=== PATIENT | female | born 1995 | race American Indian/Alaskan Native ===

== ENCOUNTER 2018-09-10 02:29 | Emergency (ER) | payer SELFPAY ==
[2018-09-10 02:37] VITALS: BP 116/75
[2018-09-10] MEDS ORDERED: BOOSTRIX IM ONE (03:01)
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
== END 2018-09-10 03:00 | disposition left against medical advice (07) ==
LOC: ED 02:29
DX: M79.645 Pain in left finger(s) (principal); Z53.21 Procedure and treatment not carried out due to patient leaving prior to being seen by health care provider

== ENCOUNTER 2018-09-15 15:51 | Emergency (ER) | payer SELFPAY ==
[2018-09-15 16:12] VITALS: BP 121/89
--- NOTE | 2018-09-15 16:14 | Emergency Department Report ---
Blank Doc - Documentation Documentation: 22 y o female presents to ed cc of generalized aching x yesterday cc of right ear pain, she also cc of heavier than normal vaginal bleed ua,upt, ACC eval
[2018-09-15 17:14] LABS: Bilirubin,Urine NEG (Negative); Blood,Urine SM (Negative); Color,Urine Yellow (Yellow); Mucus,Urine 2+ /HPF; Protein,Urine <15 mg/dL mg/dL (Negative); Urobilinogen,Urine < 2.0 mg/dL (<2.0)
[2018-09-15 17:15] LABS: HCG Qualitative,Urine Negative (Negative)
[2018-09-15] MEDS ORDERED: NACL 0.9% 1000 ML 1,000 ML IV ONE ×2 (18:37)
[2018-09-15] MEDS ORDERED: ZOFRAN IV ONE ×2 (18:37)
[2018-09-15 19:44] LABS: Hemoglobin 12.4 gm/dl (10.1-14.3); Mean Corpuscular HGB Conc 34 % (30-34); Mean Corpuscular Volume 92 fl (79-97); Platelet Count 261 K/mm3 (140-440); Red Blood Count 4.01 M/mm3 (3.65-5.03); Red Cell Distribution Width 13.6 % (13.2-15.2)
--- NOTE | 2018-09-15 19:45 | Emergency Department Report ---
HPI - General Chief Complaint: Pain General Time Seen by Provider: 09/15/18 16:12 - HPI HPI: PT is a 22-year-old female who comes to the ER with generalized malaise for several days. She also complains of finger pain after she smashed her finger between some objects a few days ago. Patient states that she's had a fever but did not take her temperature at home. She denies any abdominal pain, denies any nausea vomiting diarrhea. Patient denies cough cold or congestion. Patient not concerned that she is she states that she just had her period 2 weeks ago. ED Past Medical Hx - Past Medical History Previous Medical History?: No - Surgical History Past Surgical History?: No - Social History Smoking Status: Current Every Day Smoker ED Review of Systems ROS: Stated complaint: NAUSEA/COUGHING/WEAK Other details as noted in HPI Comment: All other systems reviewed and negative Physical Exam - Physical Exam Vital Signs: Vital Signs 09/15/18 16:11 Temperature 97.9 F Pulse Rate 72 Respiratory 18 Rate Blood Pressure 121/89 O2 Sat by Pulse 100 Oximetry Physical Exam: WDWN patient in NAD VS per RN flow sheet Alert and oriented to person, place and time. S1-S2. No S3 or S4. No systolic or diastolic murmur. No JVD. No pitting edema. Lungs clear to auscultation bilaterally anteriorly and posteriorly. Abdomen soft nontender bowel sounds X4 Moves all extremities well. Mood and affect appropriate. ED Course Vital Signs 09/15/18 16:11 Temperature 97.9 F Pulse Rate 72 Respiratory 18 Rate Blood Pressure 121/89 O2 Sat by Pulse 100 Oximetry - Reevaluation(s) Reevaluation #1: 09/16/18 02:11 SEE DOWN TIME DOCUMENTATION ED Medical Decision Making - Lab Data Result diagrams: 09/15/18 19:21 - Radiology Data Radiology results: report reviewed, image reviewed - Medical Decision Making Labs 09/15/18 09/15/18 16:44 19:21 WBC 7.3 RBC 4.01 Hgb 12.4 Hct 37.0 MCV 92 MCH 31 MCHC 34 RDW 13.6 Plt Count 261 Urine Color Yellow Urine Turbidity Slightly-cloudy Urine pH 5.0 Ur Specific [place] 1.019 Urine Protein <15 mg/dl Urine Glucose (UA) Neg Urine Ketones 80 Urine Blood Sm Urine Nitrite Neg Urine Bilirubin Neg Urine Urobilinogen < 2.0 Ur Leukocyte Esterase Neg Urine WBC (Auto) 1.0 Urine RBC (Auto) 1.0 U Epithel Cells (Auto) 1.0 Urine Mucus 2+ Urine HCG, Qual Negative Vital Signs 09/15/18 16:11 Temperature 97.9 F Pulse Rate 72 Respiratory 18 Rate Blood Pressure 121/89 O2 Sat by Pulse 100 Oximetry Critical care attestation.: If time is entered above; I have spent that time in minutes in the direct care of this critically ill patient, excluding procedure time. ED Disposition Clinical Impression: Dehydration, Finger contusion Disposition: DC-01 TO HOME OR SELFCARE Is pt being admited?: No Does the pt Need Aspirin: No Condition: Stable Referrals: PARTH SHAH MD [Primary Care Provider] - 3-5 Days Time of Disposition: 02:10
--- NOTE | 2018-09-15 21:49 | XRay Report ---
PROCEDURE: XR FINGER(S) 2+V LT HISTORY: pain FINDINGS: PA view of the left hand was acquired as well as lateral and oblique views of the left thum b. These images demonstrate no fracture or malalignment of the left thumb. IMPRESSION: No fracture is seen in the left hand or thumb This document is electronically signed by Oz Jimenez MD., September 15 2018 08:22:36 PM ET
[2018-09-16 04:22] LABS: Albumin 3.8 g/dL (3.9-5); BUN/Creatinine Ratio 13; Blood Urea Nitrogen 9 mg/dL (7-17); Calcium 8.6 mg/dL (8.4-10.2); Hemolysis Index 1
[2018-09-16 04:57] LABS: Alanine Aminotransferase < 5 units/L (7-56)
== END 2018-09-15 22:15 | disposition home or self-care (01) ==
LOC: ED 15:51
DX: S60.222A Contusion of left hand, initial encounter (principal); E86.0 Dehydration; F17.200 Nicotine dependence, unspecified, uncomplicated; W23.1XXA Caught, crushed, jammed, or pinched between stationary objects, initial encounter; Y93.89 Activity, other specified; Y92.89 Other specified places as the place of occurrence of the external cause; Y99.8 Other external cause status
CPT/HCPCS: 36415; 73140; 80053; 81001; 81025; 83690; 85027; 96361; 96374; 99284; J2405; J7030

== ENCOUNTER 2019-03-27 15:16 | Emergency (ER) | payer SELFPAY ==
--- NOTE | 2019-03-27 16:47 | Event Note ---
ED Screening Note Date of service: 03/27/19 Time: 16:45 ED Screening Note: 23 y o f presents to Ed cc of no apetite with nausea and dizziness x 2 days denies all other symptoms This initial assessment/diagnostic orders/clinical plan/treatment(s) is/are subject to change based on patients health status, clinical progression and re- assessment by fellow clinical providers in the ED. Further treatment and workup at subsequent clinical providers discretion. Patient/guardian urged not to elope from the ED as their condition may be serious if not clinically assessed and managed. Initial orders include: ua,upt
[2019-03-27 17:13] LABS: Bilirubin,Urine NEG (Negative); Blood,Urine NEG (Negative); Color,Urine Yellow (Yellow); Mucus,Urine FEW /HPF; Protein,Urine <15 mg/dL mg/dL (Negative); Urobilinogen,Urine < 2.0 mg/dL (<2.0)
[2019-03-27 17:19] LABS: HCG Qualitative,Urine Positive (Negative)
[2019-03-27] MEDS ORDERED: ONDANSETRON 4 MG ODT TAB PO ONE (19:00)
--- NOTE | 2019-03-27 20:22 | Ultrasound Report ---
Obstetrical ultrasound. 03/27/2019. HISTORY: Nausea and vomiting. FINDINGS: Imaging was performed by transabdominally and endovaginally. The uterus measures 8.2 x 4.2 x 4.4 cm. An intrauterine is dated 6 weeks 1 day. heart tones are 118 bpm. No implantation bleed is identified. Right ovary measures 3 x 2.7 x 2.2 cm. Left ovary measures 2 x 1.8 x 1.9 cm. IMPRESSION: Early viable intrauterine dated 6 weeks 1 day. Signer Name: Zachary Avila MD Signed: 03/27/2019 8:17 PM Workstation Name: [id number] [email or web address] [id number]
--- NOTE | 2019-03-27 20:54 | Emergency Department Report ---
ED Abdominal Pain HPI - General Chief Complaint: Nausea/Vomiting/Diarrhea Stated Complaint: DIZZY,NAUSEA Time Seen by Provider: 03/27/19 18:57 Source: patient Mode of arrival: Ambulatory Limitations: No Limitations - History of Present Illness Initial Comments: This is a 23-year-old Irish female who presents for intermittent nausea abdominal aching. Patient denies denies vomiting, no vaginal discharge no vaginal bleeding. States last cycle 2 months ago. States she's not sure she's . Patient is Kole Loo MD Complaint: abdominal pain Onset/Timin -: week(s) Location: suprapubic Radiation: suprapubic Migration to: no migration Severity: moderate Severity scale (0 -10): 3 Quality: aching Consistency: constant Improves With: nothing Worsens With: nothing Associated Symptoms: nausea. denies: vomiting, diarrhea, fever, chills, constipation, dysuria, melena - Related Data Previous Rx's Medication Instructions Recorded Last Taken Type Acetaminophen [Mapap] 650 mg PO QID PRN #30 tablet 03/27/19 Unknown Rx Ondansetron [Zofran Odt] 4 mg PO Q8HR PRN #20 tab.rapdis 03/27/19 Unknown Rx Allergies Allergy/AdvReac Type Severity Reaction Status Date / Time No Known Allergies Allergy Verified 09/15/18 15:55 ED Review of Systems ROS: Stated complaint: DIZZY,NAUSEA Other details as noted in HPI Constitutional: denies: chills, fever Eyes: denies: eye pain, eye discharge, vision change ENT: denies: ear pain, throat pain Respiratory: denies: cough, shortness of breath, wheezing Cardiovascular: denies: chest pain, palpitations Endocrine: no symptoms reported Gastrointestinal: abdominal pain, nausea. denies: vomiting, diarrhea Genitourinary: denies: urgency, dysuria, discharge Musculoskeletal: denies: back pain, joint swelling, arthralgia Skin: denies: rash, lesions Neurological: denies: headache, weakness, paresthesias Psychiatric: denies: anxiety, depression Hematological/Lymphatic: denies: easy bleeding, easy bruising ED Past Medical Hx - Past Medical History Previous Medical History?: No - Surgical History Past Surgical History?: No - Social History Smoking Status: Current Every Day Smoker Substance Use Type: Alcohol, Marijuana - Medications Home Medications: Home Medications Medication Instructions Recorded Confirmed Last Taken Type Acetaminophen [Mapap] 650 mg PO QID PRN #30 tablet 03/27/19 Unknown Rx Ondansetron [Zofran Odt] 4 mg PO Q8HR PRN #20 tab.rapdis 03/27/19 Unknown Rx ED Physical Exam - General Limitations: No Limitations General appearance: alert, in no apparent distress - Head Head exam: Present: atraumatic, normocephalic - Eye Eye exam: Present: normal appearance, PERRL, EOMI - ENT ENT exam: Present: mucous membranes moist - Neck Neck exam: Present: normal inspection. Absent: tenderness - Respiratory Respiratory exam: Present: normal lung sounds bilaterally. Absent: respiratory distress, wheezes, rales, stridor, chest wall tenderness - Cardiovascular Cardiovascular Exam: Present: regular rate, normal rhythm, normal heart sounds. Absent: systolic murmur, diastolic murmur, rubs, gallop - GI/Abdominal GI/Abdominal exam: Present: soft, normal bowel sounds. Absent: distended, tenderness, guarding, rebound, rigid, bruit, hernia - External exam: Present: other (deferred by patient ) - Extremities Exam Extremities exam: Present: normal inspection, full ROM, normal capillary refill - Back Exam Back exam: Present: normal inspection, full ROM. Absent: tenderness, CVA tenderness (R), CVA tenderness (L), muscle spasm, rash noted - Neurological Exam Neurological exam: Present: alert, oriented X3, CN II-XII intact, normal gait - Psychiatric Psychiatric exam: Present: normal affect, normal mood - Skin Skin exam: Present: warm, dry, intact, normal color. Absent: rash ED Course Vital Signs 03/27/19 15:26 Temperature 97.8 F Pulse Rate 85 Respiratory 18 Rate Blood Pressure 136/86 O2 Sat by Pulse 100 Oximetry ED Medical Decision Making - Lab Data Labs 03/27/19 03/27/19 17:00 Unknown Urine Color Yellow Urine Turbidity Clear Urine pH 5.0 Ur Specific [place] 1.014 Urine Protein <15 mg/dl Urine Glucose (UA) Neg Urine Ketones Tr Urine Blood Neg Urine Nitrite Neg Urine Bilirubin Neg Urine Urobilinogen < 2.0 Ur Leukocyte Esterase Neg Urine WBC (Auto) 1.0 Urine RBC (Auto) 4.0 U Epithel Cells (Auto) 1.0 Urine Mucus Few Urine HCG, Qual Positive A Blood Type O POSITIVE - Radiology Data Radiology results: report reviewed, image reviewed single IUP 6 weeks 1 days FHR: 118 bpm - Medical Decision Making single IUP 6 weeks 1 days FHR: 118 bpm, plan follow up with ob in 2-3 days . pt verbalized agreement and understanding of discharge plan. There is no vaginal bleeding , no vaginal discharge abd pain is resolved. Critical care attestation.: If time is entered above; I have spent that time in minutes in the direct care of this critically ill patient, excluding procedure time. ED Disposition Clinical Impression: Qualifiers: Weeks of gestation: less than 8 weeks Qualified Code(s): Z3A.01 - Less than 8 weeks gestation of Disposition: TO HOME OR SELFCARE Is pt being admited?: No Does the pt Need Aspirin: No Condition: Stable Instructions: (ED) Prescriptions: Acetaminophen [Mapap] 650 mg PO QID PRN #30 tablet PRN Reason: Pain , Severe (7-10) Ondansetron [Zofran Odt] 4 mg PO Q8HR PRN #20 tab.rapdis PRN Reason: Nausea Referrals: KIM JOHNSON MD [Staff Physician] - 3-5 Days Forms: Work/School Release Form(ED) Time of Disposition: 20:59
[2019-03-27 22:14] VITALS: BP 125/74
== END 2019-03-27 21:23 | disposition home or self-care (01) ==
LOC: ED 15:16
DX: O26.891 Other specified pregnancy related conditions, first trimester (principal); R10.30 Lower abdominal pain, unspecified; O99.331 Smoking (tobacco) complicating pregnancy, first trimester; O99.321 Drug use complicating pregnancy, first trimester; F12.90 Cannabis use, unspecified, uncomplicated; Z3A.01 Less than 8 weeks gestation of pregnancy
CPT/HCPCS: 36415; 76801; 76817; 81001; 81025; 84702; 86900; 86901; Q0162

== ENCOUNTER 2019-04-14 00:16 | Emergency (ER) | payer SELFPAY | END 2019-04-14 02:37 | disposition left against medical advice (07) | LOC: ED 00:16 | DX: R11.0 Nausea (principal); R53.1 Weakness; Z53.21 Procedure and treatment not carried out due to patient leaving prior to being seen by health care provider ==

== ENCOUNTER 2019-05-12 21:24 | Emergency (ER) | payer MEDICAID ==
[2019-05-12 21:34] VITALS: BP 101/49
[2019-05-12] MEDS ORDERED: SODIUM CHLORIDE 0.9% 1000 ML 1,000 ML IV ONE (22:06)
[2019-05-12] MEDS ORDERED: diphenhydrAMINE 50 MG/ML VIAL IV ONE (22:06)
[2019-05-12] MEDS ORDERED: METOCLOPRAMIDE 10 MG/2 ML INJ IV ONE (22:06)
[2019-05-12] MEDS ORDERED: ACETAMINOPHEN 500 MG TAB PO ONE (22:06)
--- NOTE | 2019-05-12 22:13 | Event Note ---
ED Screening Note Date of service: 05/12/19 Time: 22:09 ED Screening Note: Patient is A0 23 yo AA female who is approximately 12 weeks gestation who c/o diffuse lower abdominal pain, nausea, vomiting, chills, subjective fever, nasal and sinus congestion, dry cough, frontal headache, diffuse body aches and pains for the last 2 days. Patient denies dizziness, chest pain, dyspnea, vaginal bleeding bleeding or sore throat. This initial assessment/diagnostic orders/clinical plan/treatment(s) is/are subject to change based on patients health status, clinical progression and re- assessment by fellow clinical providers in the ED. Further treatment and workup at subsequent clinical providers discretion. Patient/guardian urged not to elope from the ED as their condition may be serious if not clinically assessed and managed. Initial orders include: cbc, hcg quant, cmp, ua, transvaginal US, Influenza, tylenol, reglan and benadryl
[2019-05-12 23:10] LABS: Basophils % (Auto) 0.4 % (0.0-1.8); Eosinophils # (Auto) 0.2 K/mm3 (0.0-0.4); Eosinophils % (Auto) 1.5 % (0.0-4.3); Hematocrit 34.7 % (30.3-42.9); Hemoglobin 12.1 gm/dl (10.1-14.3); Mean Corpuscular HGB Conc 35 % (30-34); Mean Corpuscular Volume 94 fl (79-97); Monocytes # (Auto) 0.3 K/mm3 (0.0-0.8); Monocytes % (Auto) 2.9 % (0.0-7.3); Platelet Count 237 K/mm3 (140-440); Red Blood Count 3.69 M/mm3 (3.65-5.03); Red Cell Distribution Width 14.2 % (13.2-15.2)
[2019-05-12 23:27] LABS: Bacteria,Urine 1+ /HPF (Negative); Bilirubin,Urine NEG (Negative); Blood,Urine NEG (Negative); Color,Urine Yellow (Yellow); Mucus,Urine FEW /HPF; Protein,Urine <15 mg/dL mg/dL (Negative); Urobilinogen,Urine < 2.0 mg/dL (<2.0); WBC,Urine < 1.0 /HPF (0.0-6.0)
[2019-05-12 23:35] LABS: Alanine Aminotransferase 7 units/L (7-56); BUN/Creatinine Ratio 4; Blood Urea Nitrogen 2 mg/dL (7-17); Calcium 9.3 mg/dL (8.4-10.2); Hemolysis Index 4
--- NOTE | 2019-05-13 00:56 | Ultrasound Report ---
OB Ultrasound HISTORY: pelvic pain - . TECHNIQUE: Grayscale and color imaging performed. COMPARISON: OB ultrasound from 03/27/2019 FINDINGS: Uterus measures 11.6 x 6.4 x 6.0 cm with endometrial echo complex with measuring 5.3 cm. Th ere is a single viable intrauterine gestation with crown-rump length of 6.6 cm which corresponds with an age of 12 weeks and 6 days. Estimated delivery date is 11/19/2019. Heart rate is 162 bpm. No free fluid or acute abnormality. Ovaries are both normal in appearance. IMPRESSION: Single viable intrauterine gestation as above. Signer Name: Efe Whitaker MD Signed: 05/13/2019 12:52 AM Workstation Name: [id number]
[2019-05-13] MEDS ORDERED: diphenhydrAMINE 50 MG/ML VIAL ONE (01:30)
[2019-05-13] MEDS ORDERED: METOCLOPRAMIDE 10 MG/2 ML INJ ONE (01:30)
[2019-05-13] MEDS ORDERED: SODIUM CHLORIDE 0.9% 1000 ML 1,000 ML ONE (01:31)
[2019-05-13] MEDS ORDERED: ACETAMINOPHEN 500 MG TAB ONE (01:31)
--- NOTE | 2019-05-13 02:27 | Emergency Department Report ---
ED Abdominal Pain HPI - General Chief Complaint: Abdominal Pain Stated Complaint: SLAUGHTER,BODY ACHE, STOMACH ACHE,SWEATS Time Seen by Provider: 05/13/19 01:11 Source: patient Mode of arrival: Ambulatory Limitations: No Limitations - History of Present Illness Initial Comments: Patient is A0 23 yo AA female who is approximately 12 weeks gestation who c/o diffuse lower abdominal pain, nausea, vomiting, chills, subjective fever, nasal and sinus congestion, dry cough, frontal headache, diffuse body aches and pains for the last 2 days. Patient denies dizziness, chest pain, dyspnea, vaginal bleeding bleeding or sore throat. symptoms are rated as 3/10, are exacerbated by activity, are relieved by rest. There is no vaginal bleeding at this time. MD Complaint: abdominal pain Onset/Timin -: days(s) Location: LLQ, RLQ Radiation: LLQ, RLQ Migration to: no migration Severity: moderate Severity scale (0 -10): 5 Quality: cramping Consistency: intermittent Improves With: nothing Worsens With: nothing Context: sick contacts Associated Symptoms: nausea, vomiting. denies: diarrhea, fever, chills, con stipation, dysuria, melena - Related Data LMP (females 10-50): 3 months Previous Rx's Medication Instructions Recorded Last Taken Type Acetaminophen [Mapap] 650 mg PO QID PRN #30 tablet 03/27/19 Unknown Rx Ondansetron [Zofran Odt] 4 mg PO Q8HR PRN #20 tab.rapdis 03/27/19 Unknown Rx Metoclopramide [Reglan] 10 mg PO ACHS PRN #30 tablet 05/13/19 Unknown Rx diphenhydrAMINE [Benadryl CAP] 25 mg PO Q8HR PRN #30 capsule 05/13/19 Unknown Rx Allergies Allergy/AdvReac Type Severity Reaction Status Date / Time No Known Allergies Allergy Verified 09/15/18 15:55 ED Review of Systems ROS: Stated complaint: SLAUGHTER,BODY ACHE, STOMACH ACHE,SWEATS Other details as noted in HPI Constitutional: denies: chills, fever Eyes: denies: eye pain, eye discharge, vision change ENT: denies: ear pain, throat pain Respiratory: denies: cough, shortness of breath, wheezing Cardiovascular: denies: chest pain, palpitations Endocrine: no symptoms reported Gastrointestinal: abdominal pain, nausea, vomiting. denies: diarrhea, constipation, melena Genitourinary: denies: urgency, dysuria, frequency, hematuria, discharge Musculoskeletal: denies: back pain, joint swelling, arthralgia Skin: denies: rash, lesions Neurological: denies: headache, weakness, paresthesias Psychiatric: denies: anxiety, depression Hematological/Lymphatic: denies: easy bleeding, easy bruising ED Past Medical Hx - Past Medical History Previous Medical History?: No - Surgical History Past Surgical History?: No - Social History Smoking Status: Current Every Day Smoker Substance Use Type: None - Medications Home Medications: Home Medications Medication Instructions Recorded Confirmed Last Taken Type Acetaminophen [Mapap] 650 mg PO QID PRN #30 tablet 03/27/19 Unknown Rx Ondansetron [Zofran Odt] 4 mg PO Q8HR PRN #20 tab.rapdis 03/27/19 Unknown Rx Metoclopramide [Reglan] 10 mg PO ACHS PRN #30 tablet 05/13/19 Unknown Rx diphenhydrAMINE [Benadryl CAP] 25 mg PO Q8HR PRN #30 capsule 05/13/19 Unknown Rx ED Physical Exam - General Limitations: No Limitations General appearance: alert, in no apparent distress - Head Head exam: Present: atraumatic, normocephalic - Eye Eye exam: Present: normal appearance, PERRL, EOMI Pupils: Present: normal accommodation - ENT ENT exam: Present: mucous membranes moist - Neck Neck exam: Present: normal inspection, full ROM. Absent: tenderness - Respiratory Respiratory exam: Present: normal lung sounds bilaterally. Absent: respiratory distress, wheezes, stridor - Cardiovascular Cardiovascular Exam: Present: regular rate, normal rhythm, normal heart sounds. Absent: systolic murmur, diastolic murmur, rubs, gallop - GI/Abdominal GI/Abdominal exam: Present: soft, normal bowel sounds. Absent: distended, tenderness, guarding, rebound, rigid, bruit, hernia - Rectal Rectal exam: Present: deferred - Extremities Exam Extremities exam: Present: normal inspection, full ROM. Absent: tenderness - Back Exam Back exam: Present: normal inspection, full ROM. Absent: tenderness, CVA tender ness (R), CVA tenderness (L) - Neurological Exam Neurological exam: Present: alert, oriented X3, CN II-XII intact, normal gait - Psychiatric Psychiatric exam: Present: normal affect, normal mood - Skin Skin exam: Present: warm, dry, intact, normal color. Absent: rash ED Course Vital Signs 05/12/19 21:33 Temperature 97.7 F Pulse Rate 91 H Respiratory 18 Rate Blood Pressure 101/49 O2 Sat by Pulse 98 Oximetry ED Medical Decision Making - Lab Data Result diagrams: 05/12/19 22:31 05/12/19 22:31 Labs 05/12/19 05/12/19 05/12/19 22:10 22:31 22:31 WBC 10.7 RBC 3.69 Hgb 12.1 Hct 34.7 MCV 94 MCH 33 H MCHC 35 H RDW 14.2 Plt Count 237 Lymph % (Auto) 9.0 L [place] % (Auto) 2.9 Eos % (Auto) 1.5 Baso % (Auto) 0.4 Lymph # 1.0 L [place] # 0.3 Eos # 0.2 Baso # 0.0 Seg Neutrophils % 86.2 H Seg Neutrophils # 9.2 H Sodium 138 Potassium 3.5 L Chloride 101.5 Carbon Dioxide 23 Anion Gap 17 BUN 2 L Creatinine 0.5 L Estimated GFR > 60 BUN/Creatinine Ratio 4 Glucose 92 Calcium 9.3 Total Bilirubin 0.20 AST 17 ALT 7 Alkaline Phosphatase 54 Total Protein 7.2 Albumin 4.0 Albumin/Globulin Ratio 1.3 Lipase 10 L HCG, Qual Urine Color Urine Turbidity Urine pH Ur Specific [place] Urine Protein Urine Glucose (UA) Urine Ketones Urine Blood Urine Nitrite Urine Bilirubin Urine Urobilinogen Ur Leukocyte Esterase Urine WBC (Auto) Urine RBC (Auto) U Epithel Cells (Auto) Urine Bacteria (Auto) Urine Mucus Influenza A (Rapid) Negative Influenza B (Rapid) Negative 05/12/19 05/12/19 22:31 22:50 WBC RBC Hgb Hct MCV MCH MCHC RDW Plt Count Lymph % (Auto) [place] % (Auto) Eos % (Auto) Baso % (Auto) Lymph # [place] # Eos # Baso # Seg Neutrophils % Seg Neutrophils # Sodium Potassium Chloride Carbon Dioxide Anion Gap BUN Creatinine Estimated GFR BUN/Creatinine Ratio Glucose Calcium Total Bilirubin AST ALT Alkaline Phosphatase Total Protein Albumin Albumin/Globulin Ratio Lipase HCG, Qual Positive Urine Color Yellow Urine Turbidity Clear Urine pH 8.0 H Ur Specific [place] 1.013 Urine Protein <15 mg/dl Urine Glucose (UA) Neg Urine Ketones Neg Urine Blood Neg Urine Nitrite Neg Urine Bilirubin Neg Urine Urobilinogen < 2.0 Ur Leukocyte Esterase Neg Urine WBC (Auto) < 1.0 Urine RBC (Auto) 2.0 U Epithel Cells (Auto) 4.0 Urine Bacteria (Auto) 1+ Urine Mucus Few Influenza A (Rapid) Influenza B (Rapid) - Radiology Data Radiology results: report reviewed, image reviewed Findings [facility] [address] [place] [address] Ultrasound Report Signed Patient: RUSS MORGAN MR#: [id number] : 1995 Acct:[id number] Age/Sex: 23 / F ADM Date: 05/12/19 Loc: ED Attending Dr: Ordering Physician: RACHAEL GIVENS Date of Service: 05/12/19 Procedure(s): US OB <= 14 weeks fetus Accession Number(s): [id number] cc: RACHAEL GIVENS OB Ultrasound HISTORY: pelvic pain - . TECHNIQUE: Grayscale and color imaging performed. COMPARISON: OB ultrasound from 03/27/2019 FINDINGS: Uterus measures 11.6 x 6.4 x 6.0 cm with endometrial echo complex with measuring 5.3 cm. There is a single viable intrauterine gestation with crown-rump length of 6.6 cm which corresponds with an age of 12 weeks and 6 days. Estimated delivery date is 11/19/2019. Heart rate is 162 bpm. No free fluid or acute abnormality. Ovaries are both normal in appearance. IMPRESSION: Single viable intrauterine gestation as above. Signer Name: Efe Whitaker MD Signed: 05/13/2019 12:52 AM Workstation Name: [id number] Transcribed By: GONSALO Dictated By: Efe Whitaker MD Electronically Authenticated By: Efe Whitaker MD Signed Date/Time: 05/13/1951 DD/ TD/TT: - Medical Decision Making US: Single IUP 12 weeks and 6 days, FHR: 162 bmp: ua: normal, there is no vaginal bleeding. Symptoms are improved with medications given in ed. Plan: dc to home with rx: Diclegis , follow up with OBGYN in 2-3 days, return to emergency if symptoms worsen. pt verbalized agreement and understanding of discharge plan. Critical care attestation.: If time is entered above; I have spent that time in minutes in the direct care of this critically ill patient, excluding procedure time. ED Disposition Clinical Impression: Nausea and vomiting Qualifiers: Vomiting type: unspecified Vomiting Intractability: non-intractable Qualified Code(s): R11.2 - Nausea with vomiting, unspecified Abdominal pain during Qualifiers: Trimester: second trimester Qualified Code(s): O26.892 - Other specified related conditions, second trimester; R10.9 - Unspecified abdominal pain Disposition: TO HOME OR SELFCARE Is pt being admited?: No Does the pt Need Aspirin: No Condition: Stable Instructions: Abdominal Pain (ED), Acute Nausea and Vomiting (ED) Prescriptions: diphenhydrAMINE [Benadryl CAP] 25 mg PO Q8HR PRN #30 capsule PRN Reason: Nausea And Vomiting Metoclopramide [Reglan] 10 mg PO ACHS PRN #30 tablet PRN Reason: Nausea And Vomiting Referrals: ADRIAN BYNUM MD [Staff Physician] - 3-5 Days Forms: Work/School Release Form(ED) Time of Disposition: 02:41
== END 2019-05-13 02:55 | disposition home or self-care (01) ==
LOC: ED 21:24
DX: O26.891 Other specified pregnancy related conditions, first trimester (principal); R11.0 Nausea; O21.8 Other vomiting complicating pregnancy; O99.331 Smoking (tobacco) complicating pregnancy, first trimester; Z3A.12 12 weeks gestation of pregnancy
CPT/HCPCS: 36415; 76801; 80053; 81001; 83690; 84703; 85025; 87400; 96361; 96374; 96375; 99284; J1200; J2765; J7030

== ENCOUNTER 2019-11-23 16:55 | Emergency (ER) | payer MEDICAID ==
--- NOTE | 2019-11-23 19:11 | Event Note ---
ED Screening Note Date of service: 11/23/19 Time: 19:10 ED Screening Note: Patient complains of left upper abdominal pain radiating to her left flank times today Denies any urinary symptoms Denies history of abdominal surgeries States vomited x2 without hematemesis/coffee-ground emesis This initial assessment/diagnostic orders/clinical plan/treatment(s) is/are subject to change based on patients health status, clinical progression and re- assessment by fellow clinical providers in the ED. Further treatment and workup at subsequent clinical providers discretion. Patient/guardian urged not to elope from the ED as their condition may be serious if not clinically assessed and managed. Initial orders include: Labs
[2019-11-23 19:34] LABS: Basophils # (Auto) 0.1 K/mm3 (0.0-0.1); Basophils % (Auto) 0.8 % (0.0-1.8); Eosinophils # (Auto) 0.1 K/mm3 (0.0-0.4); Eosinophils % (Auto) 0.9 % (0.0-4.3); Hematocrit 39.8 % (30.3-42.9); Hemoglobin 13.1 gm/dl (10.1-14.3); Lymphocytes # (Auto) 1.9 K/mm3 (1.2-5.4); Lymphocytes % (Auto) 21.4 % (13.4-35.0); Mean Corpuscular HGB Conc 33 % (30-34); Mean Corpuscular Volume 95 fl (79-97); Monocytes # (Auto) 0.4 K/mm3 (0.0-0.8); Monocytes % (Auto) 4.9 % (0.0-7.3); Platelet Count 313 K/mm3 (140-440); Red Blood Count 4.19 M/mm3 (3.65-5.03); Red Cell Distribution Width 13.7 % (13.2-15.2)
[2019-11-23 19:43] LABS: Bacteria,Urine 1+ /HPF (Negative); Bilirubin,Urine NEG (Negative); Blood,Urine LG (Negative); Color,Urine Yellow (Yellow); Mucus,Urine FEW /HPF; Protein,Urine <15 mg/dL mg/dL (Negative); Urobilinogen,Urine < 2.0 mg/dL (<2.0)
[2019-11-23 19:47] LABS: HCG Qualitative,Urine Negative (Negative)
[2019-11-23 19:53] LABS: Alanine Aminotransferase 14 units/L (7-56); Albumin 3.8 g/dL (3.9-5); Blood Urea Nitrogen 7 mg/dL (7-17); Calcium 9.2 mg/dL (8.4-10.2); Hemolysis Index 8
[2019-11-23 19:56] LABS: BUN/Creatinine Ratio 12
--- NOTE | 2019-11-24 03:01 | Emergency Department Report ---
ED Abdominal Pain HPI - General Chief Complaint: Abdominal Pain Stated Complaint: ABD PAIN Time Seen by Provider: 11/23/19 19:07 Source: patient, EMS Mode of arrival: Stretcher Limitations: No Limitations - History of Present Illness Initial Comments: 24-year-old -[place] female resents emergency department complaining of right-sided abdominal pain that radiates through to her mid back area of an unknown etiology reports no nausea no vomiting no vaginal bleeding or vaginal discharge no fever, chills, sweats no dysuria but recently reports having a delivery on November 08. MD Complaint: abdominal pain -: Gradual Severity: mild, moderate Severity scale (0 -10): 6 Quality: aching Consistency: constant Associated Symptoms: denies other symptoms. denies: vomiting, diarrhea, dysuria, hematemesis, melena, hematuria, anorexia - Related Data Previous Rx's Medication Instructions Recorded Last Taken Type Acetaminophen [Mapap] 650 mg PO QID PRN #30 tablet 03/27/19 Unknown Rx Ondansetron [Zofran Odt] 4 mg PO Q8HR PRN #20 tab.rapdis 03/27/19 Unknown Rx Metoclopramide [Reglan] 10 mg PO ACHS PRN #30 tablet 05/13/19 Unknown Rx diphenhydrAMINE [Benadryl CAP] 25 mg PO Q8HR PRN #30 capsule 05/13/19 Unknown Rx Nitrofurantoin Baxter/M-Cryst 100 mg PO Q12HR #14 capsule 11/24/19 Unknown Rx [Macrobid CAP] Allergies Allergy/AdvReac Type Severity Reaction Status Date / Time No Known Allergies Allergy Verified 09/15/18 15:55 ED Review of Systems ROS: Stated complaint: ABD PAIN Other details as noted in HPI Comment: All other systems reviewed and negative ED Past Medical Hx - Past Medical History Previous Medical History?: No - Surgical History Past Surgical History?: No - Social History Smoking Status: Never Smoker Substance Use Type: None - Medications Home Medications: Home Medications Medication Instructions Recorded Confirmed Last Taken Type Acetaminophen [Mapap] 650 mg PO QID PRN #30 tablet 03/27/19 Unknown Rx Ondansetron [Zofran Odt] 4 mg PO Q8HR PRN #20 tab.rapdis 03/27/19 Unknown Rx Metoclopramide [Reglan] 10 mg PO ACHS PRN #30 tablet 05/13/19 Unknown Rx diphenhydrAMINE [Benadryl CAP] 25 mg PO Q8HR PRN #30 capsule 05/13/19 Unknown Rx Nitrofurantoin Baxter/M-Cryst 100 mg PO Q12HR #14 capsule 11/24/19 Unknown Rx [Macrobid CAP] ED Physical Exam - General Limitations: No Limitations General appearance: alert, in no apparent distress - Head Head exam: Present: atraumatic, normocephalic - Eye Eye exam: Present: normal appearance, PERRL, EOMI - ENT ENT exam: Present: mucous membranes moist - Neck Neck exam: Present: normal inspection - Respiratory Respiratory exam: Present: normal lung sounds bilaterally. Absent: respiratory distress - Cardiovascular Cardiovascular Exam: Present: regular rate, normal rhythm. Absent: systolic murmur, diastolic murmur, rubs, gallop - GI/Abdominal GI/Abdominal exam: Present: soft, tenderness (Tenderness), normal bowel sounds, other (Tenderness to McBurney's no, no Mc sign, no Dorena sign, no Causey Shay, no Rovsing). Absent: organomegaly, mass, bruit - Extremities Exam Extremities exam: Present: normal inspection, full ROM, normal capillary refill - Back Exam Back exam: Present: normal inspection - Neurological Exam Neurological exam: Present: alert, oriented X3 - Psychiatric Psychiatric exam: Present: normal affect, normal mood - Skin Skin exam: Present: warm, dry, intact, normal color. Absent: rash ED Course Vital Signs 11/23/19 17:03 Temperature 97.9 F Pulse Rate 93 H Respiratory 18 Rate Blood Pressure 119/69 O2 Sat by Pulse 98 Oximetry ED Medical Decision Making - Lab Data Result diagrams: 11/23/19 19:20 11/23/19 19:20 - Radiology Data Radiology results: report reviewed Referring Physician:ROBERTA BARBERPatient Name:RUSS MORGANPatient ID:[id number] of :[id number]:FemaleAccession:[id number] Date:[id number] Status:Finalized Findings [facility] [address] [place] [address] Cat Scan Report Signed Patient: RUSS MORGAN MR#: [id number] : 1995 Acct:[id number] Age/Sex: 24 / F ADM Date: 11/23/19 Loc: ED Attending Dr: Ordering Physician: RACHAEL WATT Date of Service: 11/24/19 Procedure(s): CT abdomen pelvis wo con Accession Number(s): [id number] cc: RACHAEL WATT CT abdomen pelvis wo con INDICATION / CLINICAL INFORMATION: Patient complains of LEFT flank and LEFT pelvic pain with N/V.. TECHNIQUE: Axial CT imaging of abdomen and pelvis was obtained without contrast. Coronal and sagittal reformatted imaging obtained and reviewed. All CT scans at this location are performed using CT dose reduction for ALARA by means of automated exposure control. COMPARISON: None available. FINDINGS: CT abdomen without contrast demonstrates grossly normal appearance of the liver, spleen, pancreas, adrenal glands and kidneys. No intrarenal calculi or hydronephrosis noted. Gallbladder is present and unremarkable. CT pelvis without contrast shows enlarged uterus. The uterus is approximately 12.5 cm in length. No focal uterine mass identified on this noncontrasted exam. The left ovary is mildly enlarged and there is suggestion of possible ovarian mass. No free fluid or surrounding inflammatory change. The appendix is unremarkable. GI tract is normal. Visualized lung bases are clear. Review of osseous structures is unremarkable. IMPRESSION: 1. Questionable left ovarian mass versus enlargement. If there is clinical possibility of ovarian torsion, recommend pelvic ultrasound for further evaluation of the left ovary. 2. Mildly enlarged uterus. 3. No other significant finding. No evidence of hydronephrosis or renal calculus. Signer Name: Moon Coelho MD Signed: 11/24/2019 3:07 AM Workstation Name: [id number] Transcribed By: JR Dictated By: Moon Coelho MD Electronically Authenticated By: Moon Coelho MD Signed Date/Time: 11/24/19306 DD/ 1 TD/TT: - Medical Decision Making This patient presents with abdominal pain of unclear etiology. A CT scan was performed to evaluate for potential causes of the abdominal pain, however, neither the clinical exam nor the CT has identified an emergent etiology for the abdominal pain. Specifically, given the benign exam, the laboratory studies, and unremarkable CT, I have a very low suspicion for appendicitis, ischemic bowel, bowel perforation, or any other life threatening disease. I have discussed with the patient the level of uncertainty with undifferentiated abdominal pain and clearly explained the need to follow-up as noted on the discharge instructions, or return to the Emergency Department immediately if the pain worsens, develops fever, persistent and uncontrollable vomiting, or for any new symptoms or concerns. Critical care attestation.: If time is entered above; I have spent that time in minutes in the direct care of this critically ill patient, excluding procedure time. ED Disposition Clinical Impression: UTI (urinary tract infection), Abdominal pain Disposition: - TO HOME OR SELFCARE Is pt being admited?: No Does the pt Need Aspirin: No Condition: Stable Instructions: Abdominal Pain (ED), Urinary Tract Infection in Women (ED) Prescriptions: Nitrofurantoin Baxter/M-Cryst [Macrobid CAP] 100 mg PO Q12HR #14 capsule Referrals: PRIMARY CARE, [Primary Care Provider] - 3-5 Days
--- NOTE | 2019-11-24 03:12 | Cat Scan Report ---
CT abdomen pelvis wo con INDICATION / CLINICAL INFORMATION: Patient complains of LEFT flank and LEFT pelvic pain with N/V.. TECHNIQUE: Axial CT imaging of abdomen and pelvis was obtained without contrast. Coronal and sagittal reformatte d imaging obtained and reviewed. All CT scans at this location are performed using CT dose reduction for ALARA by means of automated exposure control. COMPARISON: None available. FINDINGS: CT abdomen without contrast demonstrates grossly normal appearance of the liver, spleen, pancreas, ad renal glands and kidneys. No intrarenal calculi or hydronephrosis noted. Gallbladder is present and u nremarkable. CT pelvis without contrast shows enlarged uterus. The uterus is approximately 12.5 cm in length. No f ocal uterine mass identified on this noncontrasted exam. The left ovary is mildly enlarged and there is suggestion of possible ovarian mass. No free fluid or surrounding inflammatory change. The appendi x is unremarkable. GI tract is normal. Visualized lung bases are clear. Review of osseous structures is unremarkable. IMPRESSION: 1. Questionable left ovarian mass versus enlargement. If there is clinical possibility of ovarian tor bernard, recommend pelvic ultrasound for further evaluation of the left ovary. 2. Mildly enlarged uterus. 3. No other significant finding. No evidence of hydronephrosis or renal calculus. Signer Name: Moon Coelho MD Signed: 11/24/2019 3:07 AM Workstation Name: [id number]
--- NOTE | 2019-11-24 06:36 | Ultrasound Report ---
ULTRASOUND PELVIS, COMPLETE INDICATION: Recent . Possible left ovarian mass on CT scan performed earlier today. COMPARISON: CT abdomen/pelvis, 11/24/2019. FINDINGS: Transabdominal ultrasound only. Uterus: The uterus is mildly enlarged, consistent with recent status. The uterus measures 13.7 x 5.2 x 8.1 cm.. Endometrial echo complex measures 11.2 mm small amount of fluid is seen through out the endometrium.. Right ovary: No significant abnormality. Left ovary: There is a 2 cm hypoechoic mass within the left ovary. This could represent a hemorrhagic cyst.. Color Doppler ultrasound demonstrates bilateral ovarian blood flow. Additional findings: There is no free fluid in the pelvis. Urinary bladder is unremarkable. IMPRESSION: 1. There is a 2 cm hypoechoic mass within the left ovary possibly representing hemorrhagic cyst.. No evidence of ovarian torsion. 2. Mildly enlarged uterus containing small amount of fluid within the endometrium. This is most likel y normal appearance. Signer Name: Moon Coelho MD Signed: 11/24/2019 6:32 AM Workstation Name: [id number]
[2019-11-24 07:16] VITALS: BP 120/84
== END 2019-11-24 07:11 | disposition home or self-care (01) ==
LOC: ED 16:55
DX: N39.0 Urinary tract infection, site not specified (principal); Z79.899 Other long term (current) drug therapy
CPT/HCPCS: 36415; 74176; 80053; 81001; 81025; 83690; 85025; 87086; 93975